=== PATIENT | female | born 1990 | race Caucasian/White ===

== ENCOUNTER 2019-01-02 19:11 | Emergency (ER) | payer SELFPAY, MEDICAID ==
[2019-01-02] MEDS: SODIUM CHLORIDE 0.9% 1L BAG IV* (21:11)
[2019-01-02] MEDS: ACETAMINOPHEN 325 MG TAB PO (21:11)
[2019-01-02] MEDS: KETOROLAC 30 MG INJ IV (21:12)
[2019-01-02 21:47] LABS: ADD MAN DIFF? NO
[2019-01-02 21:50] LABS: BASOPHILS % 0.1 % (0.0-2.0); HEMATOCRIT 41.6 % (37.0-47.0); LYMPHOCYTES # 1.3 10^3/ul (0.8-2.9); LYMPHOCYTES % 14.6 % (15.0-51.0); MEAN CORPUSCULAR HEMOGLOBIN 30.4 pg (29.0-33.0); MEAN CORPUSCULAR HGB CONC 33.7 g/dl (32.0-37.0); MEAN CORPUSCULAR VOLUME 90.2 fl (82.0-101.0); MEAN PLATELET VOLUME 11.5 fl (7.4-10.4); MONOCYTE # 0.6 10^3/ul (0.3-0.9); MONOCYTES % 6.7 % (0.0-11.0); NEUTROPHIL # 6.9 10^3/ul (1.6-7.5); NEUTROPHILS % 78.3 % (39.0-77.0); PLATELET COUNT 162 10^3/UL (140-415); RED BLOOD COUNT 4.61 10^6/ul (4.20-5.40)
[2019-01-02 21:50] LABS: WHITE BLOOD COUNT 8.8 10^3/ul (4.8-10.8)
[2019-01-02 22:06] LABS: ADD UMIC YES; UR ASCORBIC ACID NEGATIVE (NEGATIVE); UR BACTERIA FEW /HPF (NONE SEEN); UR BILIRUBIN (Dip) NEGATIVE (NEGATIVE); UR BLOOD (Dip) 2+ mg/dL (NEGATIVE); UR CLARITY SLIGHTLY CLOUDY (CLEAR); UR COLOR YELLOW (YELLOW); UR GLUCOSE (Dip) NEGATIVE (NEGATIVE); UR KETONES (Dip) 1+ mg/dL (NEGATIVE); UR LEUKOCYTE ESTERASE (Dip) 2+ Leu/ul (NEGATIVE); UR NITRITE (Dip) NEGATIVE (NEGATIVE); UR RBC 3 /HPF (0-5); UR SPECIFIC GRAVITY (Dip) 1.011 (1.003-1.030); UR SQUAMOUS EPITHELIAL CELL FEW /HPF (FEW); UR TOTAL PROTEIN (Dip) 1+ mg/dl (NEGATIVE); UR UROBILINOGEN (Dip) NEGATIVE (NEGATIVE); UR WBC 38 /HPF (0-5)
[2019-01-02 22:07] LABS: ALANINE AMINOTRANSFERASE 89 IU/L (13-69); ALBUMIN 4.2 g/dl (3.3-4.9); ALBUMIN/GLOBULIN RATIO 1.16; ALKALINE PHOSPHATASE 113 IU/L (42-121); ANION GAP 6 (5-13); ASPARTATE AMINO TRANSFERASE 38 IU/L (15-46); BILIRUBIN,INDIRECT 0.5 mg/dl (0-1.1); BILIRUBIN,TOTAL 0.5 mg/dl (0.2-1.3); BLOOD UREA NITROGEN 5 mg/dl (7-20); CALCIUM 9.2 mg/dl (8.4-10.2); CARBON DIOXIDE 29 mmol/L (21-31); CHLORIDE 100 mmol/L (97-110); CREATININE 0.62 mg/dl (0.44-1.00); Estimated GFR > 60 mL/min (>60); GLUCOSE 105 mg/dl (70-220); POTASSIUM 3.2 mmol/L (3.5-5.1); SODIUM 135 mmol/L (135-144); TOTAL PROTEIN 7.8 g/dl (6.1-8.1)
[2019-01-02 22:09] LABS: INR 0.97
[2019-01-02 22:10] LABS: PARTIAL THROMBOPLASTIN TIME 28.4 Sec (23.0-35.0)
[2019-01-02 22:19] LABS: TROPONIN-I < 0.012 ng/ml (0.000-0.120)
[2019-01-02 23:10] LABS: LACTIC ACID 0.6 mmol/L (0.5-2.0)
[2019-01-02] MEDS: POTASSIUM CHLORIDE (SR) 20 MEQ TAB PO (23:57)
[2019-01-02] MEDS: CEFTRIAXONE 1 GM/50 ML (PMX) 50 ML IVPB (23:57)
== END 2019-01-03 01:56 | disposition home or self-care (01) ==
LOC: FTE 01-03 01:56
DX: N12 Tubulo-interstitial nephritis, not specified as acute or chronic (principal)
CPT/HCPCS: 36415; 80053; 81001; 81025; 83605; 84484; 85025; 85610; 85730; 87040-91; 87086; 96374; 96375; 99284-25